=== PATIENT | female | born 1975 | race Hispanic/Latino ===

== ENCOUNTER 2020-05-28 08:34 | Day surgery (SDC) | payer OTHER ==
[2020-05-27 13:50] VITALS: BMI 36.1
[2020-05-28] MEDS ORDERED: AFRIN NASAL MIST 15 ML BOT ONE ×2 (09:04→09:30)
[2020-05-28] MEDS ORDERED: Midazolam HCl 2 mg/2 ml Vial ONE ×2 (09:30→09:39)
[2020-05-28] MEDS ORDERED: Fentanyl 100 MCG/2 ML VIAL ONE (09:30)
[2020-05-28] MEDS ORDERED: Lidocaine 1% w/Epinephrine 1:100K 20 ML VIAL ONE (09:30)
[2020-05-28] MEDS ORDERED: Dexamethasone 20 MG/5 ML VIAL ONE (10:00)
[2020-05-28] MEDS ORDERED: Ondansetron PF 4 MG/2 ML Vial ONE (10:00)
[2020-05-28] MEDS ORDERED: PHENYLEPHRINE-NS 100 MCG/ML 10 ML SYRINGE ONE (10:00)
[2020-05-28] MEDS ORDERED: Lidocaine 1% PF 5 ML VIAL ONE (10:00)
[2020-05-28] MEDS ORDERED: PROPOFOL 200 MG/20 ML VIAL ONE (10:00)
[2020-05-28] MEDS ORDERED: Triamcinolone 40 MG/ML VIAL ONE (10:16)
[2020-05-28] MEDS ORDERED: Bupivacaine 0.25% HCL 30 ML VIAL ONE (10:16)
[2020-05-28] MEDS ORDERED: Promethazine HCl 25 MG/ML VIAL ONE (12:07)
== END 2020-05-28 13:27 | disposition home or self-care (01) ==
LOC: SDC 08:34
PROVIDERS: ATTEND Specialist
PROC: 09BM8ZZ Excision of Nasal Septum, Via Natural or Artificial Opening Endoscopic (ICD-10-PCS; principal; 2020-05-28)
PROC: 09BL8ZZ Excision of Nasal Turbinate, Via Natural or Artificial Opening Endoscopic (ICD-10-PCS; principal; 2020-05-28)
DX: J34.2 Deviated nasal septum (principal); J34.3 Hypertrophy of nasal turbinates; M06.9 Rheumatoid arthritis, unspecified; E66.01 Morbid (severe) obesity due to excess calories; Z68.36 Body mass index [BMI] 36.0-36.9, adult; Z88.5 Allergy status to narcotic agent
CPT/HCPCS: 36415; 85014; J1100; J2250; J2405; J2550; J2704; J3010; J3301; S0020